=== PATIENT | male | born 1980 | race Caucasian/White ===

== ENCOUNTER 2023-08-31 15:11 | Outpatient (REF) | payer BC, SELFPAY ==
[2023-08-31 14:40] LABS: Abs Immature Grans 0.16 10^3/uL (0.0-0.06); Absolute Basophil Count 0.07 10^3/uL (0.0-0.2); Absolute Eosinophil Count 0.19 10^3/uL (0.0-0.7); Absolute Lymphocyte Count 2.75 10^3/uL (1.2-3.4); Absolute Monocyte Count 0.84 10^3/uL (0.1-0.8); Basophils % 0.8; Eosinophils % 2.2; HCT 46.8 % (40.0-50.0); Immature Grans % 1.8; Lymphocytes % 31.6; MCH 27.8 pg (27.0-33.0); MCHC 32.1 % (32.0-36.0); MCV 87 fL (80-95); MPV 9.9 fL (8.0-11.0); Monocytes % 9.6; Platelet Count 273 10^3/uL (130-400); RDW 13.2 % (11.8-14.1); WBC 8.71 10^3/uL (4.4-10.8)
[2023-08-31 15:27] LABS: Hemoglobin A1C 5.6 % (<5.7)
[2023-08-31 15:33] LABS: ALT 63 U/L (16-63); AST 28 U/L (15-37); Albumin 3.8 g/dL (3.4-5.0); Alkaline Phosphatase 76 U/L (46-116); Anion Gap 10.2 mmol/L (3-11); BUN 14 mg/dL (7-18); Bilirubin, Total 0.5 mg/dL (0.2-1.0); CO2 28.8 mmol/L (21.0-32.0); CREATININE 0.9 mg/dL (0.70-1.30); Calcium 9.4 mg/dL (8.5-10.1); Calculated LDL 95 mg/dL (<100); Chloride 105 mmol/L (98-107); Cholesterol 158 mg/dL (<200); Estimated GFR 108.01 (mL/min/1.73m2); Glucose 75 mg/dL (74-106); HDL Cholesterol 31 mg/dL (40-60); Potassium 4.7 mmol/L (3.5-5.1); Sodium 144 mmol/L (136-145); Total Protein 7.6 g/dL (6.4-8.2); Triglyceride 164 mg/dL (<150)
[2023-09-06 15:57] LABS: 25-Hydroxy D Total 48 ng/mL; 25-Hydroxy D2 <4.0 ng/mL; 25-Hydroxy D3 48 ng/mL
== END 2023-08-31 15:12 | disposition home or self-care (01) ==
LOC: NCHCN 15:11
PROVIDERS: PCP Family Medicine; Visit Provider Family Medicine
DX: Z00.00 Encounter for general adult medical examination without abnormal findings (principal)
CPT/HCPCS: 80053; 80061; 82306; 83036; 84443; 85025

== ENCOUNTER 2023-12-03 10:13 | Day surgery (SDC) | payer BC, SELFPAY ==
[2023-12-03] MEDS: Lactated Ringers 1,000 ML 80 ML IV (10:38)
--- NOTE | 2023-12-03 10:53 | W.COLOREPORT ---
Date of service: 12/03/23 Time of Service: 10:53 Colonoscopy Report Procedure Description: PROCEDURES PERFORMED: 1. Colonoscopy with cold forceps polypectomy x 2 PREOPERATIVE DIAGNOSIS: Screening colonoscopy POSTOPERATIVE DIAGNOSIS: Colon polyps, sigmoid diverticulosis, grade 1 internal hemorrhoids SURGEON: Sasha Burt MD INDICATION FOR PROCEDURE: the patient is a 43-year-old man with a family history of colon cancer in maternal grandmother and his father. He has no symptoms. He has never had a colonoscopy before. FINDINGS: The terminal ileum was normal. In the cecum a small 2-3 mm sessile polyp was removed with cold forceps technique. There are diverticular disease changes in the sigmoid colon but overall mild/minimal. No fibrosis or active diverticulitis. In the rectum another 2 to 3 mm sessile polyp was removed with cold forceps technique. There is minimal/mild grade 1 internal hemorrhoids on retroflexion. SURVEILLANCE interval/FOLLOW-UP: In 3-5 years considering the family history. If these are simple adenomas or hyperplastic then 5 years can be considered. If they are sessile serrated or villous histology on the right side of the colon, then it should be done in 3 years. SPECIMENS: Yes EBL: Minimal COMPLICATIONS: None QUALITY of prep: Excellent Procedure in detail: The patient gave written consent and was in agreement with the indications, the potential risks as well as the benefits of the procedure. They were taken to the endoscopy suite and laid in the left lateral decubitus position. A timeout was performed and anesthesia was administered which was tolerated well. I started the procedure. Digital rectal and visual examination was performed and grossly within normal limits. A well-lubricated flexible colonoscope was then introduced and passed without any notable difficulty all the way to the cecum identified by the ileocecal valve and the appendiceal orifice. The terminal ileum was intubated and looked normal. The scope was then slowly withdrawn with the above-noted findings. The patient tolerated the procedure well and was taken to the PACU in hemodynamically stable condition.
--- NOTE | 2023-12-03 10:54 | W.PM.DSUDISC ---
Date of service: 12/03/23 Time of Service: 10:54 Discharge Plan Disposition Patient Disposition: Home Condition: Good Discharge Details Attending Provider: Srinath Burt Primary Care Provider: Vanessa Nuñez Home Meds and New Rx's Prescriptions: No Action bisacodyl [Dulcolax (bisacodyl)] 5 mg tablet,delayed release (DR/EC) 5 mg PO ONCE Qty: 4 0RF Rx Instructions: Take per colonoscopy instructions provided by ordering providers office polyethylene glycol 3350 17 gram/dose powder 17 g PO ONCE Qty: 238 0RF Rx Instructions: Take per colonoscopy instructions provided by ordering providers office Discharge Instructions Additional Instructions: FINDINGS: 2 polyps were found and removed. They are nothing to worry about but this is why we do the colonoscopies. Because of finding these in your family history should do another colonoscopy in 5 years. Diverticular findings were present in your colon as well as some mild hemorrhoid disease. These are both very common conditions, benign conditions and nothing needs to be done about them. Stand Alone Forms: Anesthesia Discharge Inst., Colonoscopy Post Instructions, Abiola Hawley (DSU) Activity:: Activity as Tolerated Diet:: As Tolerated
--- NOTE | 2023-12-03 10:57 | W.ANESPRE ---
General Info Date of Service Date Performed: 12/03/23 Height: 6 ft 2 in Weight: 141.6 kg Body Mass Index (BMI): 40.1 Surgical Procedure: Operation Date: 12/03/23 11:50 Proposed Procedure Side Surgeon marilee Burt MD Meds Allergies and Home Medications Allergies Allergy/AdvReac Type Severity Reaction Status Date / Time No Known Allergies Allergy Verified 12/03/23 10:28 Home Medication Medication Instructions Recorded bisacodyl 5 mg tablet,delayed 5 mg PO ONCE #4 tabs 11/15/23 release (Dulcolax (bisacodyl)) polyethylene glycol 3350 17 17 g PO ONCE #238 grams 11/15/23 gram/dose oral powder Current Visit Medications: Current Medications Generic Name Dose Route Start Last Admin Trade Name Freq PRN Reason Stop Dose Admin Ringer's Solution 1,000 mls @ 80 mls/hr 12/03/23 06:00 12/03/23 10:38 IV 12/03/23 23:59 80 mls/hr INFUSION MARICHUY Administration IV Miscellaneous Supplies 1 each 12/03/23 06:00 Iv Access IV 12/03/23 23:59 DIRECTED MARICHUY Sodium Chloride 0 ml 12/03/23 06:00 Normal Saline Flush 10 Ml Syr IV 12/03/23 23:59 PRN PRN Sodium Chloride 0 ml 12/03/23 06:00 Normal Saline 10 Ml Vial IJ 12/03/23 23:59 DIRECTED PRN Sterile Water 0 ml 12/03/23 06:00 Water,Injection,Sterile 10 Ml Vial IJ 12/03/23 23:59 [facility]ED [facility] Medical History Medical History History of pneumonia GERD (gastroesophageal reflux disease) ELVIN (obstructive sleep apnea) Tobacco Smoking/Tobacco Use Status: Never Alcohol Alcohol Intake: current Alcohol intake frequency: a few times a month Substance Use Substance use: Never Substance use type: does not use Vital Signs and Lab Results Lab Results Blood Type / Crossmatch: No Data to Display Complete Blood Count: No Data to Display Complete Metabolic Panel: No Data to Display Liver Function Panel: No Data to Display Coagulation Panel: No Data to Display Cardiac Panel: No Data to Display Arterial Blood Gas: No Data to Display Venous Blood Gas: No Data to Display Pancreas Panel: No Data to Display Thyroid Panel: No Data to Display Infectious Disease: No Data to Display Blood Cultures: No Data to Display Toxicology Panel: No Data to Display Anesthesia Assessment and Plan Anesthesia History Personal History: No History of General Anesthesia Family History: No Family History of Anesthesia Complications Exercise Tolerance Exercise Tolerance: Metabolic Equivalents>4 Pertinent Negatives Pertinent Negatives: No Major Cardiovascular Symptoms or Complaints and No Major Pulmonary Symptoms or Complaints Cardiac & Pulmonary Exam Cardiac Exam: Normal S1/S2 Heart Sounds Pulmonary Exam: Clear Bilateral Breath Sounds Implantable Cardiac Device Does patient have a Pacemaker or an ICD?: No Airway Exam Known Difficult Airway: No Mallampati Class: 2 Mouth Opening: Normal (> 3cm) Thyromental Distance: Greater than 3 cm Neck Range of Motion: Full ROM Neck Circumference: Thick Teeth Condition: Normal Dentition ASA Classification ASA Score: ASA 3 Emergency Case?: No NPO Status NPO Status: NPO Clears >2 hours, Solids >8 hours Anesthesia Plan Resuscitation Status: Full Code Anesthesia Technique: General Anesthesia Airway Planned: Natural Airway Monitors Used: Standard Monitors Preoperative Comments:: Non-compliant with CPAP device, first colonoscopy
[2023-12-03 10:58] VITALS: BMI 40.1
--- NOTE | 2023-12-03 11:12 | BOWEL_PTH ---
PATIENT: Jose Smith LOC: [facility] U#:[id number] AGE/SX: 43/M ROOM: RE12/03/[address]: Srinath Burt : 1980 BED: DIS: 12/03/2023 SPEC #: [id number] RECD: 12/03/23 13:10 STATUS: [facility] #: [id number] MARYANNE: 12/03/23 11:[address]: Srinath Burt DEPT: Surgical Specimen RECD BY: Gem Petit ENTERED: 12/03/23 13:11 SP TYPE: Bowel OTHR DR: Vanessa Nuñez Tissues: 1 - BIOPSY BOWEL 2 - BIOPSY BOWEL Procedures: GROSS AND MICRO LEVEL 4 Comments: [id number]
[2023-12-03 11:28] VITALS: BP 140/74; PULSE 88; RESP 16; TEMP 36.7; O2SAT 96
--- NOTE | 2023-12-03 11:36 | W.ANESPOSTOP ---
Postoperative Evaluation Date, Time and Location Date Performed: 12/03/23 Time Performed: 11:36 Patient Location: Day Surgery Unit Pain Score Most Recent Pain Score: Most Recent Pain Score Pain Level 0 12/03/23 10:19 Assessment Mental Status: Awake (Alert & Oriented to Patient Baseline) Airway and Respiratory Function: Patent airway with normal (patient baseline) respiratory exam Cardiovascular Function: Hemodynamically Stable (VSS ) Hydration Status: Adequately Hydrated Nausea & Vomiting: No Nausea or Vomiting Pain: Pt. Denies Any Pain Peripheral Nerve Block: Patient did not receive a nerve block
[2023-12-03 12:02] VITALS: BP 130/70; PULSE 76; RESP 18; TEMP 36.3; O2SAT 96
== END 2023-12-03 12:08 | disposition home or self-care (01) ==
LOC: SUR 10:13
PROVIDERS: PCP Family Medicine; Visit Provider Student in an Organized Health Care Education/Training Program
PROC: 0DJD8ZZ Inspection of Lower Intestinal Tract, Via Natural or Artificial Opening Endoscopic (ICD-10-PCS; CPT 45378; principal; 2023-12-03 11:45)
DX: Z12.11 Encounter for screening for malignant neoplasm of colon (principal); D12.0 Benign neoplasm of cecum; K62.1 Rectal polyp; K64.0 First degree hemorrhoids
CPT/HCPCS: 45380; 00123; 88305; J2001; J2704

== ENCOUNTER 2024-12-10 13:43 | Outpatient (REF) | payer BC, SELFPAY ==
[2024-12-10 16:14] LABS: ALT 54 U/L (16-63); AST 25 U/L (15-37); Albumin 3.8 g/dL (3.4-5.0); Alkaline Phosphatase 91 U/L (46-116); Anion Gap 7.8 mmol/L (3-11); BUN 18 mg/dL (7-18); Bilirubin, Total 0.4 mg/dL (0.2-1.0); CO2 29.2 mmol/L (21.0-32.0); Calcium 9.2 mg/dL (8.5-10.1); Calculated LDL 76 mg/dL (<100); Chloride 104 mmol/L (98-107); Cholesterol 143 mg/dL (<200); Estimated GFR 107.33 (mL/min/1.73m2); Glucose 125 mg/dL (74-106); HDL Cholesterol 32 mg/dL (>or=40); Potassium 4.3 mmol/L (3.5-5.1); Sodium 141 mmol/L (136-145); Total Protein 7.4 g/dL (6.4-8.2); Triglyceride 176 mg/dL (<150); Vitamin D 25 Total 51 ng/mL (30-100)
== END 2024-12-10 13:44 | disposition home or self-care (01) ==
LOC: NCHCN 13:43
PROVIDERS: PCP Family Medicine; Visit Provider Family Medicine
DX: E55.9 Vitamin D deficiency, unspecified (principal); Z00.00 Encounter for general adult medical examination without abnormal findings
CPT/HCPCS: 80053; 80061; 82306

== ENCOUNTER 2025-02-18 08:49 | Emergency (ER) | payer BC, SELFPAY ==
[2025-02-18 08:59] VITALS: BP 147/61; PULSE 79; RESP 16; TEMP 37.2; O2SAT 95
--- NOTE | 2025-02-18 09:15 | DI.CT_ITS ---
Exam(s) CT ABDOMEN PELVIS WO EXAM: CT ABDOMEN PELVIS WO CLINICAL HISTORY: right flank pain, eval for stone/Gb. TECHNIQUE: Imaging Protocol: Axial computed tomography images with coronal and sagittal reformatted images were created and reviewed CONTRAST MATERIAL: Intravenous: none Oral: None COMPARISON: No exams were available for comparison FINDINGS: VISUALIZED LUNG BASES: No nodules nor pleural effusions evident. ABDOMEN: There is no ascites. LIVER: There are no obvious focal hepatic lesions evident of this noninfused study. GALLBLADDER/BILIARY: On 1 axial image there is a tiny calcification on the dependent wall the gallbladder (series 3/image 37). This may represent a tiny calculus polyp. Gallbladder is not distended nor edematous and there is no pericholecystic fluid. CBD is not dilated. PANCREAS: No evidence of pancreatic mass nor dilatation of the pancreatic duct. SPLEEN: Spleen is not enlarged. No obvious intrasplenic lesions. ADRENALS: There are no significant adrenal masses. KIDNEYS:No cysts evident. No solid renal masses. No calculi nor hydronephrosis. . ABDOMINAL AORTA: Abdominal aorta is not enlarged. LYMPH NODES: There is no retroperitoneal nor paraaortic adenopathy. ABDOMINAL WALL: No evidence of significant anterior abdominal wall nor inguinal hernia. GI: There is no evidence of bowel obstruction, free air, nor abscess. PELVIS: LYMPH NODES: There is no intrapelvic nor inguinal adenopathy. GI: No evidence of appendicitis.There diverticuli in the upper sigmoid and left side of the colon but no evidence of acute diverticulitis. URINARY BLADDER: No calculi nor obvious masses evident REPRODUCTIVE: Prostate size normal. OSSEOUS: No significant osseous lesions. No acute fractures. No listhesis. IMPRESSION: 1. No evidence of nephrolithiasis nor other significant focal findings in the kidneys. No hydronephrosis nor hydroureter. No calculi evident in the urinary bladder. 2. On 1 image there is a tiny density in the gallbladder which may be a tiny calculus on the dependent wall. There is no evidence of discitis nor dilatation of the biliary tree. 3. Diverticuli noted in left side of the colon but no evidence of acute diverticulitis. Appendix also appears unremarkable. Report called by myself to ER physician 02/18/2025 at 9:55 a.m. RADIATION DOSE DELIVERED: Total DLP DATA REPOSITORY: All CT scans at this facility are submitted to the National Radiology Data Registry (NRDR) Dose Index Registry (DIR) with the [employer] (ACR). RADIATION OPTIMIZATION: All CT scans at this facility use at least one of these dose optimization techniques: automated exposure control; mA and/or kV adjustment per patient size (includes targeted exams where dose is matched to clinical indication); or iterative reconstruction.
--- NOTE | 2025-02-18 09:19 | W.ED.GENAD ---
Discharge Plan Disposition Patient Disposition: Home Condition: Good Discharge Details Clinical Impression: Acute right flank pain Primary Care Provider: Vanessa Nuñez ED Provider: Von Paredes Home Meds and New Rx's Prescriptions: New cyclobenzaprine 10 mg tablet 10 mg PO TID Qty: 14 0RF No Action terbinafine HCl 250 mg tablet 250 mg PO DAILY Discharge Instructions Instructions: Flank Pain Additional Instructions: At this time your workup has returned reassuring. There is no evidence to suggest a kidney stone, gallbladder problem or other significant abnormality. You do have a very small potential stone in your gallbladder but this should not be causing your symptoms. As we discussed together my suspicion at this time is that you have a component of a muscle strain or spasm causing your symptomatology. Please take Tylenol as needed for pain. Use a heating pad to help. Please take the cyclobenzaprine to help with the muscle spasm. Please do not operate heavy machinery, drive, swim or use firearms while on this medication as it can make you significantly sleepy. If you notice any worsening of your symptoms, or any new symptoms such as vomiting, diarrhea, fever, chills, shortness of breath, chest pain, numbness, weakness, or fainting , please return immediately to the emergency department for reevaluation. Please follow up with your primary care provider as soon as possible for reassessment and reevaluation. As always, it was a pleasure participating in your medical care today. Referrals: Vanessa Nuñez [Primary Care Provider, Medicine] Discharge Data Discharge Date/Time-TO BE ENTERED AT DEPARTURE: 02/18/25 12:17 HPI General Date/Time Provider Initiated Documentation: 02/18/25 09:06. HPI Narrative: This is a pleasant 44-year-old male with no significant past medical history who presents today for evaluation of right flank pain. Patient states that he woke up this morning and had a cramping spasm-like sensation in his right flank. Pain was made worse with movement. He had a hard time sitting and standing up initially. If he sits in an upright position and does not move the pain is significantly less. He did take Tylenol which only gave slight improvement to his symptoms. He denies any numbness or tingling in his groin. He denies any recent falls or trauma. He denies any urinary frequency burning or hematuria. He denies any chest pain or shortness of breath. He denies any trauma. No other complaints at this time. Related Data Home Medications ?Medication ?Instructions ?Recorded ?Confirmed cyclobenzaprine 10 mg tablet 10 mg PO TID #14 tabs 02/18/25 terbinafine HCl 250 mg tablet 250 mg PO DAILY 02/18/25 02/18/25 Previous Rx's ?Medication ?Instructions ?Recorded cyclobenzaprine 10 mg tablet 10 mg PO TID #14 tabs 02/18/25 Allergies Allergy/AdvReac Type Severity Reaction Status Date / Time aspirin Allergy Mild Hives Verified 02/18/25 09:02 NSAIDS (Non-Steroidal Allergy Mild Hives Verified 02/18/25 09:56 Anti-Inflamma General Stated Complaint: Nk/Back Pain JESSIE: 3 Exam Narrative Exam Narrative: 1.Const: Well-nourished, Well-developed, appearing stated age 2.Eyes: PERRL, no conjunctival injection, and symmetrical lids. 3.ENT: Atraumatic external nose and ears. Moist MM. Neck: Symmetric, trachea midline, No thyromegaly. 4.CVS: +S1/S2, Peripheral pulses 2+ and equal in all extremities. Brisk capillary refill in all extremities. 5.RESP: Unlabored respiratory effort. Clear to auscultation bilaterally. No wheezes rales or rhonchi 6.GI: Soft, Nontender/Nondistended, No hepatosplenomegaly. No guarding or rebound. No pain at McBurney's point. Negative Regalado sign 7.MSK: Normocephalic/Atraumatic, Extremities w/o deformity or ttp No cyanosis or clubbing, Normal movement of all extremities. No midline cervical thoracic or lumbar spine tenderness. No paraspinal tenderness. Mild subjective pain in the right flank/right lateral inferior ribs. However no worsening of pain with percussion or palpation. 8.Skin: Warm, Dry. No rashes or lesions. 9.Neuro: breakfast supervisor II-XII grossly intact. Sensation grossly intact, no focal neurologic deficits. 10.Psych: (AAO) x3. Appropriate mood and affect Course Vital Signs Vital signs: Vital Signs Temperature 37.2 C 02/18/25 08:59 Pulse 79 02/18/25 08:59 Respiratory Rate 16 02/18/25 08:59 Blood Pressure 147/61 H 02/18/25 08:59 Pulse Oximetry 95 02/18/25 08:59 Temperature 37.2 C 02/18/25 08:59 Pulse 79 02/18/25 08:59 Respiratory Rate 16 02/18/25 08:59 Blood Pressure 147/61 H 02/18/25 08:59 Blood Pressure Position Sitting 02/18/25 08:59 Pulse Oximetry 95 02/18/25 08:59 Oxygen Delivery Method Room Air 02/18/25 08:59 Oxygen Flow Rate 0 02/18/25 08:59 Pain Level 4 02/18/25 09:03 Comment Pain increases making it hard to breath with movement 02/18/25 08:59 Medical Decision Making This is a pleasant 44-year-old male with no significant past medical history who presents today for evaluation of right flank pain. Patient states that he woke up this morning and had a cramping spasm-like sensation in his right flank. Pain was made worse with movement. He had a hard time sitting and standing up initially. If he sits in an upright position and does not move the pain is significantly less. He did take Tylenol which only gave slight improvement to his symptoms. He denies any numbness or tingling in his groin. He denies any recent falls or trauma. He denies any urinary frequency burning or hematuria. He denies any chest pain or shortness of breath. He denies any trauma. No other complaints at this time. Exam demonstrates a well-appearing male, vital signs stable, pain is located in the right flank, just at the lateral border of the ribs on the right posterior side. However no CVA tenderness on percussion. No worsening pain with palpation. Negative Regalado sign and certainly no pain at McBurney's point. Differential includes urolithiasis, atypical intercostal muscle sprain, less likely cholelithiasis. UTI or Michael is on the differential. Will give muscle relaxant, NSAID therapy Lidoderm patch get CT imaging monitor closely and reassess. 9:56 AM When nursing asked about allergies, patient stated he gets hives from aspirins, but not other medications. When his arrived later she stated that his allergy is actually to NSAIDs and not aspirin. Patient had already received Toradol at this point. Because of this out of an abundance of caution we will give famotidine Benadryl and Solu-Medrol. Patient does admit to a tiny bit of itching, but no rash or other signs of reaction otherwise. No evidence of anaphylaxis. 12:[address] scan has returned and shows no evidence of acute process. Questionable extremely tiny gallbladder calculus, which is not appearing to be the clinical cause of his symptomatology. Laboratory workup shows no white count bandemia or left shift. He is slightly dehydrated. Urinalysis shows some ketones, glucose normal no evidence to suggest DKA. No evidence of infection. On reassessment patient feels much better after muscle relaxants and NSAIDs. Symptoms at this time appear consistent with potential psoas muscle strain, intercostal strain, but do not appear consistent with urolithiasis, cholecystitis, hepatitis, pyelonephritis or other significant emergent etiology. With the patient's improvement of symptoms, will recommend continued Tylenol at home, as well as cyclobenzaprine. After prolonged observation phase the patient continued to show no signs of anaphylaxis or significant allergic reaction whatsoever. Patient appears stable for discharge. I have extensively reviewed the treatment plan and discharge instructions with the patient and their family. I have addressed all patient concerns at this time. The patient and family was made aware of what symptoms to monitor for that would warrant a return to the emergency department. Discussed the plan with the patient and family, they demonstrate verbal understanding and agreement with our assessment and plan at this time. The documentation in this chart was dictated using [employer] dictation software. Please excuse any dictation errors. FINDINGS: VISUALIZED LUNG BASES: No nodules nor pleural effusions evident. ABDOMEN: There is no ascites. LIVER: There are no obvious focal hepatic lesions evident of this noninfused study. GALLBLADDER/BILIARY: On 1 axial image there is a tiny calcification on the dependent wall the gallbladder (series 3/image 37). This may represent a tiny calculus polyp. Gallbladder is not distended nor edematous and there is no pericholecystic fluid. CBD is not dilated. PANCREAS: No evidence of pancreatic mass nor dilatation of the pancreatic duct. SPLEEN: Spleen is not enlarged. No obvious intrasplenic lesions. ADRENALS: There are no significant adrenal masses. KIDNEYS:No cysts evident. No solid renal masses. No calculi nor hydronephrosis. . ABDOMINAL AORTA: Abdominal aorta is not enlarged. LYMPH NODES: There is no retroperitoneal nor paraaortic adenopathy. ABDOMINAL WALL: No evidence of significant anterior abdominal wall nor inguinal hernia. GI: There is no evidence of bowel obstruction, free air, nor abscess. PELVIS: LYMPH NODES: There is no intrapelvic nor inguinal adenopathy. GI: No evidence of appendicitis.There diverticuli in the upper sigmoid and left side of the colon but no evidence of acute diverticulitis. URINARY BLADDER: No calculi nor obvious masses evident REPRODUCTIVE: Prostate size normal. OSSEOUS: No significant osseous lesions. No acute fractures. No listhesis. IMPRESSION: 1. No evidence of nephrolithiasis nor other significant focal findings in the kidneys. No hydronephrosis nor hydroureter. No calculi evident in the urinary bladder. 2. On 1 image there is a tiny density in the gallbladder which may be a tiny calculus on the dependent wall. There is no evidence of discitis nor dilatation of the biliary tree. 3. Diverticuli noted in left side of the colon but no evidence of acute diverticulitis. Appendix also appears unremarkable. PFSH All Active Problems (Updated 02/18/25 @ 12:02 by Von Paredes DO) Acute right flank pain (Acute) Medical History (Updated 02/18/25 @ 12:02 by Von Paredes DO) Tubular adenoma (~12/2023) Hyperplastic colonic polyp (~12/2023) History of pneumonia GERD (gastroesophageal reflux disease) ELVIN (obstructive sleep apnea) Surgical History (Updated 12/03/23 @ 14:57 by Olivia Nickerson) History of colonoscopy (~12/2023) Family History (Updated 11/19/23 @ 12:55 by TEQUILA Lopez) Father Colon cancer Maternal Grandmother Colon cancer Social History (Updated 11/19/23 @ 12:54 by TEQUILA Lopez) Smoking/Tobacco Use Status: Never Smoking risk assessment performed?: Yes Alcohol Intake: current Alcohol Intake frequency: a few times a month Drug use: Never Substance use type: does not use Housing: house Do you feel safe at home: Yes Do you feel safe in your relationship?: Yes
[2025-02-18] MEDS: Cyclobenzaprine 10 MG TAB PO (09:27)
[2025-02-18] MEDS: Ketorolac 15 MG/ML VIAL IVP (09:27)
[2025-02-18] MEDS: Lactated Ringers 1,000 ML 1000 ML IV (09:28)
[2025-02-18] MEDS: Lidocaine 5% Patch 1 PATCH TP (09:28)
[2025-02-18 09:46] LABS: Abs Immature Grans 0.23 10^3/uL (0.0-0.06); HCT 46.1 % (40.0-50.0); HGB 15.3 g/dL (13.5-17.5); Immature Grans % 2.8 %; MCH 27.7 pg (27.0-33.0); MCHC 33.2 % (32.0-36.0); MCV 84 fL (80-95); MPV 9.2 fL (8.0-11.0); Platelet Count 261 10^3/uL (130-400); RBC 5.52 10^6/uL (4.36-5.78); RDW 13.2 % (11.8-14.1); RDW-SD 40.5 fL; WBC 8.22 10^3/uL (4.4-10.8)
[2025-02-18] MEDS: diphenhydrAMINE 50 MG/ML VIAL 25 MG IVP (10:03)
[2025-02-18] MEDS: methylPREDNISolone SUCC 125 MG VIAL IVP (10:03)
[2025-02-18 10:04] LABS: ALT 50 U/L (16-63); AST 20 U/L (15-37); Albumin 3.8 g/dL (3.4-5.0); Alkaline Phosphatase 81 U/L (46-116); Anion Gap 9.8 mmol/L (3-11); BUN 20 mg/dL (7-18); Bilirubin, Total 0.4 mg/dL (0.2-1.0); CO2 26.2 mmol/L (21.0-32.0); Calcium 9.8 mg/dL (8.5-10.1); Chloride 104 mmol/L (98-107); Estimated GFR 94.59 (mL/min/1.73m2); Glucose 88 mg/dL (74-106); Lipase 47 U/L (<78); Potassium 4.4 mmol/L (3.5-5.1); Sodium 140 mmol/L (136-145); Total Protein 8.0 g/dL (6.4-8.2)
[2025-02-18] MEDS: Famotidine 20 MG/2 ML VIAL IVP (10:04)
[2025-02-18] MEDS: Normal Saline 50 ML 125 ML (10:05)
[2025-02-18 11:29] LABS: Glucose Negative (Negative)
[2025-02-18 11:42] LABS: C & S Indicated? No; RBC Negative HPF (0-2); WBC 0-2 HPF (0-5)
[2025-02-18 12:16] VITALS: BP 124/67; PULSE 72; RESP 16; O2SAT 97
[2025-02-18 12:17] VITALS: BP 124/67; PULSE 72; RESP 16; O2SAT 97
== END 2025-02-18 12:17 | disposition home or self-care (01) ==
PROVIDERS: Emergency Provider Student in an Organized Health Care Education/Training Program; PCP Family Medicine
DX: R10.9 Unspecified abdominal pain (principal)
CPT/HCPCS: 36415; 80053; 83690; 96361; 96374; 96375; 99284; 74176; 81003; 81015; 85025; J1200; J1885; J2919